=== PATIENT | male | born 1960 | race Caucasian/White ===

== ENCOUNTER 2018-11-06 21:03 | Emergency (ER) | payer SELFPAY ==
[2018-11-06 21:14] VITALS: BP 170/95
== END 2018-11-06 21:29 | disposition left against medical advice (07) ==
LOC: ED 21:03
DX: Z53.21 Procedure and treatment not carried out due to patient leaving prior to being seen by health care provider (principal)

== ENCOUNTER 2023-07-22 10:31 | Emergency (ER) | payer MEDICAID ==
--- NOTE | 2023-07-22 11:13 | ED Physician Documentation ---
History of Present Illness - Stated complaint Stated Complaint: HIGH BP - Chief complaint Chief Complaint: Cardiac - History obtained from History obtained from: Patient - Additonal information Additional information: Patient is a 62-year-old male with a history of hypertension presenting for evaluation of elevated blood pressure. Patient was at the dentist this morning to have 7 teeth extracted when they checked his blood pressure and systolic was in the 200 range. They recommended he come to the emergency department for evaluation. Patient states his blood pressure has been elevated like this for quite some time. He was recently restarted on blood pressure medication 2 weeks ago. He is supposed to be following up with his PCP in the next week to go over a log of his blood pressure readings to discuss adjustments. He states that blood pressure readings in the 180s is not atypical for him. He denies headache, chest pain, difficulty breathing or any other symptoms. He has been compliant with his medications. Review of Systems Constitutional: denies: Fever Cardiac: denies: Chest pain / pressure Respiratory: denies: Dyspnea GI: denies: Abdominal Pain Neurologic: denies: Headache PD PAST MEDICAL HISTORY - Past Medical History Past Medical History: Yes Cardiovascular: Hypertension, High cholesterol, Coronary artery disease : Benign prostate hypertrophy - Past Surgical History Past Surgical History: Yes General: Appendectomy, Other - Present Medications Home Medications: Ambulatory Orders Medication Instructions Recorded Confirmed Lisinopril/Hydrochlorothiazide 1 each PO DAILY 07/22/23 07/22/23 [Zestoretic 20-25 mg Tablet] - Allergies Allergies/Adverse Reactions: Allergies Allergy/AdvReac Type Severity Reaction Status Date / Time simvastatin AdvReac Unknown Verified 07/22/23 10:38 - Social History Does the pt smoke?: Yes Smoking Status: Current every day smoker Does the pt drink ETOH?: Yes - Immunizations Immunizations are current?: Yes PD ED PE NORMAL - General General: Alert and oriented X 3, No acute distress, Well developed/nourished - HEENT HEENT: Atraumatic, Moist mucous membranes, Pharynx benign - Neck Neck: Supple, no meningeal sign - Cardiac Cardiac: RRR, Strong equal pulses - Respiratory Respiratory: No respiratory distress, Clear bilaterally - Abdomen Abdomen: Soft, Non tender, Non distended - Derm Derm: Warm and dry - Extremities Extremities: No edema - Neuro Neuro: Alert and oriented X 3, No motor deficit, No sensory deficit, Normal speech Results - Vitals Vitals: Vital Signs - 24 hr 07/22/23 07/22/23 07/22/23 10:40 11:17 11:26 Temperature 37.2 C Heart Rate 68 61 Respiratory 16 17 16 Rate Blood Pressure 182/106 H 170/104 H O2 Saturation 99 95 07/22/23 07/22/23 11:33 11:51 Temperature Heart Rate Respiratory 17 17 Rate Blood Pressure 171/99 H O2 Saturation Oxygen O2 Source Room air PD Medical Decision Making - ED course ED course: Patient here with asymptomatic hypertension. Reports that has been uncontrolled for quite some time and just recently restarted medications. He is under the care of his PCP and is supposed to follow-up here shortly to go over home blood pressure readings. He again he is without symptoms and was at the dentist today when his blood pressure was noted to be elevated. He does not have symptoms to suggest hypertensive emergency. Patient aware of importance of compliance with his medications. Understands concerning symptoms to return for. Departure - Departure Disposition: 01 Home, Self Care Clinical Impression: Asymptomatic hypertension Condition: Stable Instructions: ED Hypertension Conf Out Of Control Follow-Up: AMARILIS JENKINS MD [Primary Care Provider] - Comments: Your blood pressure is Elevated but you are not having any symptoms to warrant emergent lowering of your blood pressure. It sounds like your blood pressure has been elevated for quite some time and your primary care is working on getting it under control. I would reach out to your primary care doctor today to discuss further management of your blood pressure. Return to the ER if you develop any symptoms such as headache, trouble breathing or chest pain. Forms: PCP List Discharge Date/Time: 07/22/23 11:52
[2023-07-22 11:46] VITALS: O2SAT 95
[2023-07-22 11:56] VITALS: BP 171/99
== END 2023-07-22 11:52 | disposition home or self-care (01) ==
LOC: ED 10:31
DX: I10 Essential (primary) hypertension (principal); E78.00 Pure hypercholesterolemia, unspecified; I25.10 Atherosclerotic heart disease of native coronary artery without angina pectoris; N40.0 Benign prostatic hyperplasia without lower urinary tract symptoms; F17.200 Nicotine dependence, unspecified, uncomplicated
CPT/HCPCS: 99281; 99283